=== PATIENT | female | born 1975 | race Hispanic/Latino ===

== ENCOUNTER 2016-06-11 07:50 | Day surgery (SDC) | payer MEDICAID ==
[2016-06-11] MEDS ORDERED: WATER FOR IRRIG STERILE IR ONE (08:47)
[2016-06-11] MEDS ORDERED: NACL 0.9% 1000 ML 1,000 ML IV SCH (09:00)
[2016-06-11] MEDS ORDERED: DIPRIVAN 10 MG/ML IV ONE ×2 (09:00)
[2016-06-11] MEDS ORDERED: XYLOCAINE MPF 2% ONE (11:04)
--- NOTE | 2016-06-11 11:04 | Anesthesia Consultation ---
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 Nichols spoke with consulting Neurologist. Patient is cleared for anesthesia
--- NOTE | 2016-06-11 11:04 | Anesthesia Day of Surgery ---
Anesthesia Day of Surgery - Day of Surgery Patient Examined: Yes Patient H&P Reviewed: Yes Patient is NPO: Yes
[2016-06-11 11:47] VITALS: BP 104/66
--- NOTE | 2016-06-11 12:39 | Operative Report ---
Operative Report Operative Report: Date: 06/11/2016 Operative Report: Date of procedure: 06/11/2016 Procedure: Esophagogastroduodenoscopy . Attending physician: Darci Ellis MD Upholstery Cutter: Darci Ellis MD Indication: Patient is a 40-year-old female who presented with a history of epigastric pain, indigestion/ gerd with dysphagia. Patient also with complaints of bloating and intestinal gas.. An upper endoscopy is done to assess patient regarding cause of her symptoms so that treatment may be directed based on the findings. Consent: Informed consent was obtained after advising the patient and family regarding nature of this procedure, its indications, potential benefits as well as possible complications including but not limited to bleeding perforation and adverse reaction to medication, infection as well as other cardiopulmonary complications. An informed written and verbal consent was then obtained after due opportunity was provided for questions and answers. Monitoring: Patient was monitored continuously with pulse oximetry and electrocardiographic recordings as well as blood pressure recordings. Vital signs remained stable throughout this procedure with no untoward events. Preoperative assessment: Patient was assessed immediately prior to this procedure for capacity to tolerate monitored anesthesia care and moderate sedation as well as general anesthesia. Patient's ASA classification is 2, Mallampati class is 2, Hyomental distance is 3. Instrument: Bundle Itn video endoscope Medications: Propofol given intravenously in divided doses. For details please refer to anesthesia records. Description of procedure: Patient was placed in the left lateral decubitus position after achieving sedation, endoscope was introduced into the esophagus marked was advanced beyond the esophagus into stomach and then to the second portion of the duodenum. It was withdrawn with careful inspection of all mucosal surfaces with the following findings. Findings: There is mild erosive esophagitis involving the distal esophagus. There was a non-luminally occluding ring, that forms somewhat on advancing the endoscope through the esophagus but did not appear permanent.. There was a 2 cm sliding hiatal hernia seen on entry into the stomach. There was substantial retained gastric contents seen. This contains mostly old food occupying most of the gastric body and antrum. There are however no gross mucosal abnormalities seen in the antrum. The duodenum was normal to second portion. Impression: Mild erosive esophagitis Hiatal hernia. Retained gastric contents. Plan: Obtain a gastric emptying study to rule out gastroparesis. Observe patient clinically otherwise.
--- NOTE | 2016-06-11 12:39 | Post Anesthesia Evaluation ---
- Post Anesthesia Evaluation Patient Participated: Yes Airway Patent: Yes Stable Respiratory Function: Yes Nausea/Vomiting: No Temp > 96.8F: Yes Pain Manageable: Yes Adequeate Hydration: Yes Anesthesia Complications: No Block Receding Appropriately: Not Applicable Patient on Ventilator: No
--- NOTE | 2016-06-11 12:39 | Discharge Summary ---
Short Stay Discharge Plan Activity: advance as tolerated Weight Bearing Status: Weight Bear as Tolerated Diet: regular Additional Instructions: Post Sedation D/C Instructions When you return home you may resume your regular diet unless otherwise directed. -Go directly home from the hospital and rest quietly. You may resume normal activities tomorrow. -Do NOT drive, return to work, operate any machinery or make any important personal or business decisions today. -Do NOT drink any alcohol or take nerve or sleeping drugs. They add to the effects of the medicine still present in your body. Follow up with Dr. Ellis for treatment plan. Follow up with: FATOU NGO DO [Primary Care Provider] - 7 Days
== END 2016-06-11 07:51 | disposition home or self-care (01) ==
LOC: GIO 07:50
PROVIDERS: ATTEND Internal Medicine Gastroenterology
DX: K21.0 Gastro-esophageal reflux disease with esophagitis (principal); K44.9 Diaphragmatic hernia without obstruction or gangrene; F17.210 Nicotine dependence, cigarettes, uncomplicated; F41.9 Anxiety disorder, unspecified; F32.9 Major depressive disorder, single episode, unspecified; Z90.710 Acquired absence of both cervix and uterus; Z98.890 Other specified postprocedural states; Z79.899 Other long term (current) drug therapy; Z83.79 Family history of other diseases of the digestive system
CPT/HCPCS: 43235; J2704; J7030

== ENCOUNTER 2019-02-11 19:46 | Inpatient (IN) | payer MEDICAID, MEDICARE ==
--- NOTE | 2019-02-11 19:58 | Emergency Department Report ---
Blank Doc - Documentation Documentation: 43-year-old female that presents with left foot pain and swelling s/p injury. This initial assessment/diagnostic orders/clinical plan/treatment(s) is/are subject to change based on patient's health status, clinical progression and re- assessment by fellow clinical providers in the ED. Further treatment and workup at subsequent clinical providers discretion. Patient/guardians urged not to elope from the ED as their condition may be serious if not clinically assessed and managed. Initial orders include: 1- Patient sent to [facility] for further evaluation and treatment 2- xrays
--- NOTE | 2019-02-11 20:43 | XRay Report ---
XR foot 3+V LT INDICATION / CLINICAL INFORMATION: Left foot pain and swelling. COMPARISON: None available. FINDINGS: There is focal cortical bone lysis in the distal tuft of the first digit distal phalanx concerning fo r osteomyelitis. There is adjacent soft tissue swelling of the big toe. There is no soft tissue gas o r radiopaque foreign body. Remaining bones appear normal. Signer Name: Carlos Israel MD Signed: 02/11/2019 8:39 PM Workstation Name: [id number]
[2019-02-12 01:15] LABS: Basophils # (Auto) 0.1 K/mm3 (0.0-0.1); Basophils % (Auto) 0.8 % (0.0-1.8); Eosinophils # (Auto) 0.2 K/mm3 (0.0-0.4); Eosinophils % (Auto) 2.2 % (0.0-4.3); Hematocrit 42.5 % (30.3-42.9); Hemoglobin 14.6 gm/dl (10.1-14.3); Lymphocytes # (Auto) 3.3 K/mm3 (1.2-5.4); Lymphocytes % (Auto) 45.8 % (13.4-35.0); Mean Corpuscular HGB Conc 35 % (30-34); Mean Corpuscular Volume 89 fl (79-97); Monocytes # (Auto) 0.6 K/mm3 (0.0-0.8); Monocytes % (Auto) 8.1 % (0.0-7.3); Platelet Count 251 K/mm3 (140-440); Red Blood Count 4.78 M/mm3 (3.65-5.03); Red Cell Distribution Width 13.7 % (13.2-15.2)
[2019-02-12] MEDS ORDERED: SODIUM CHLORIDE 0.9% 1000 ML 1,000 ML IV ONE (01:21)
[2019-02-12 01:29] LABS: Alanine Aminotransferase 17 units/L (7-56); Albumin 4.5 g/dL (3.9-5); BUN/Creatinine Ratio 8; Blood Urea Nitrogen 5 mg/dL (7-17); Calcium 9.5 mg/dL (8.4-10.2); Hemolysis Index 4
[2019-02-12] MEDS ORDERED: MORPHINE 4 MG/1 ML INJ IV ONE (02:09)
[2019-02-12] MEDS ORDERED: ONDANSETRON 4 MG/2 ML INJ IV ONE (02:09)
--- NOTE | 2019-02-12 02:14 | Emergency Department Report ---
ED General Adult HPI - General Chief complaint: Extremity Injury, Lower Stated complaint: LT FOOT PAIN W/SWELLING Time Seen by Provider: 02/11/19 19:56 Source: patient Mode of arrival: Ambulatory Limitations: No Limitations - History of Present Illness Initial comments: Patient presents to the emergency department with a chief complaint of swelling and pain to her left great toe times one week. Patient denies a history of diabetes mellitus or any trauma to that toe. - Related Data Home Medications Medication Instructions Recorded Confirmed Last Taken Amitriptyline 20 mg PO HS 06/11/16 06/11/16 06/09/16 Cyclobenzaprine 10 mg PO PRN 06/11/16 06/11/16 Unknown Gabapentin 300 mg PO HS 06/11/16 06/11/16 06/09/16 Meclizine 25 mg PO HS 06/11/16 06/11/16 06/10/16 Meloxicam 7.5 mg PO BID 06/11/16 06/11/16 06/10/16 Omeprazole 20 mg PO BID 06/11/16 06/11/16 06/10/16 Propranolol 40 mg PO BID 06/11/16 06/11/16 06/10/16 Sertraline 25 mg PO TID 06/11/16 06/11/16 06/10/16 Topiramate 100 mg PO DAILY 06/11/16 06/11/16 06/10/16 busPIRone 5 mg PO BID 06/11/16 06/11/16 06/10/16 Previous Rx's Medication Instructions Recorded Last Taken Type HYDROcodone/APAP 5-325 [[place] 1 each PO Q6HR PRN #10 tablet 08/06/13 Unknown Rx 5-325 mg TAB] Ibuprofen [Motrin] 800 mg PO Q8H PRN #20 tablet 08/06/13 Unknown Rx Phenazopyridine [Pyridium] 200 mg PO TID #6 tablet 08/06/13 Unknown Rx Sulfamethoxazole/Trimethoprim 1 each PO BID #28 tablet 08/06/13 Unknown Rx [Bactrim Ds] Ibuprofen [Motrin 600 MG tab] 600 mg PO Q8H PRN #14 tablet 12/29/15 Unknown Rx traMADoL [Ultram 50 MG tab] 50 mg PO Q6HR PRN #10 tablet 12/29/15 06/09/16 Rx Allergies Allergy/AdvReac Type Severity Reaction Status Date / Time acetaminophen [From Percocet] Allergy Itching Verified 12/29/15 05:27 oxycodone HCl [From Percocet] Allergy Itching Verified 12/29/15 05:27 ED Review of Systems ROS: Stated complaint: LT FOOT PAIN W/SWELLING Other details as noted in HPI Comment: All other systems reviewed and negative Constitutional: denies: chills, fever Eyes: denies: eye pain, eye discharge, vision change ENT: denies: ear pain, throat pain Respiratory: denies: cough, shortness of breath, wheezing Cardiovascular: denies: chest pain, palpitations Endocrine: no symptoms reported Gastrointestinal: denies: abdominal pain, nausea, diarrhea Genitourinary: denies: urgency, dysuria, discharge Musculoskeletal: other (left toe pain). 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 bladder sling - Social History Smoking Status: Never Smoker Substance Use Type: None - Medications Home Medications: Home Medications Medication Instructions Recorded Confirmed Last Taken Type HYDROcodone/APAP 5-325 [[place] 1 each PO Q6HR PRN #10 tablet 08/06/13 06/11/16 Unknown Rx 5-325 mg TAB] Ibuprofen [Motrin] 800 mg PO Q8H PRN #20 tablet 08/06/13 06/11/16 Unknown Rx Phenazopyridine [Pyridium] 200 mg PO TID #6 tablet 08/06/13 06/11/16 Unknown Rx Sulfamethoxazole/Trimethoprim 1 each PO BID #28 tablet 08/06/13 06/11/16 Unknown Rx [Bactrim Ds] Ibuprofen [Motrin 600 MG tab] 600 mg PO Q8H PRN #14 tablet 12/29/15 06/11/16 Unknown Rx traMADoL [Ultram 50 MG tab] 50 mg PO Q6HR PRN #10 tablet 12/29/15 06/11/16 06/09/16 Rx Amitriptyline 20 mg PO HS 06/11/16 06/11/16 06/09/16 History Cyclobenzaprine 10 mg PO PRN 06/11/16 06/11/16 Unknown History Gabapentin 300 mg PO HS 06/11/16 06/11/16 06/09/16 History Meclizine 25 mg PO HS 06/11/16 06/11/16 06/10/16 History Meloxicam 7.5 mg PO BID 06/11/16 06/11/16 06/10/16 History Omeprazole 20 mg PO BID 06/11/16 06/11/16 06/10/16 History Propranolol 40 mg PO BID 06/11/16 06/11/16 06/10/16 History Sertraline 25 mg PO TID 06/11/16 06/11/16 06/10/16 History Topiramate 100 mg PO DAILY 06/11/16 06/11/16 06/10/16 History busPIRone 5 mg PO BID 06/11/16 06/11/16 06/10/16 History ED Physical Exam - General Limitations: No Limitations General appearance: alert, in no apparent distress - Head Head exam: Present: atraumatic, normocephalic - Eye Eye exam: Present: normal appearance, PERRL, EOMI - ENT ENT exam: Present: mucous membranes moist - Neck Neck exam: Present: normal inspection - Respiratory Respiratory exam: Present: normal lung sounds bilaterally. Absent: respiratory distress - Cardiovascular Cardiovascular Exam: Present: regular rate, normal rhythm. Absent: systolic murmur, diastolic murmur, rubs, gallop - GI/Abdominal GI/Abdominal exam: Present: soft, normal bowel sounds. Absent: distended, tenderness - Extremities Exam Extremities exam: Present: other (the swelling of the left great toe with erythema and warmth to touch) - Back Exam Back exam: Present: normal inspection - Neurological Exam Neurological exam: Present: alert, oriented X3, CN II-XII intact. Absent: motor sensory deficit - Psychiatric Psychiatric exam: Present: normal affect, normal mood - Skin Skin exam: Present: warm, dry, intact, normal color. Absent: rash ED Course Vital Signs 02/11/19 19:52 Temperature 97.4 F L Pulse Rate 74 Respiratory 18 Rate Blood Pressure 114/82 O2 Sat by Pulse 99 Oximetry ED Medical Decision Making - Lab Data Result diagrams: 02/12/19 00:31 02/12/19 00:31 Lab Results 02/12/19 02/12/19 02/12/19 Range/Units 00:31 00:31 00:31 WBC 7.3 (4.5-11.0) K/mm3 RBC 4.78 (3.65-5.03) M/mm3 Hgb 14.6 H (10.1-14.3) gm/dl Hct 42.5 (30.3-42.9) % MCV 89 (79-97) fl MCH 31 (28-32) pg MCHC 35 H (30-34) % RDW 13.7 (13.2-15.2) % Plt Count 251 (140-440) K/mm3 Lymph % (Auto) 45.8 H (13.4-35.0) % [place] % (Auto) 8.1 H (0.0-7.3) % Eos % (Auto) 2.2 (0.0-4.3) % Baso % (Auto) 0.8 (0.0-1.8) % Lymph # 3.3 (1.2-5.4) K/mm3 [place] # 0.6 (0.0-0.8) K/mm3 Eos # 0.2 (0.0-0.4) K/mm3 Baso # 0.1 (0.0-0.1) K/mm3 Seg Neutrophils % 43.1 (40.0-70.0) % Seg Neutrophils # 3.1 (1.8-7.7) K/mm3 Sodium 138 (137-145) mmol/L Potassium 3.7 (3.6-5.0) mmol/L Chloride 102.4 (98-107) mmol/L Carbon Dioxide 28 (22-30) mmol/L Anion Gap 11 mmol/L BUN 5 L (7-17) mg/dL Creatinine 0.6 L (0.7-1.2) mg/dL Estimated GFR > 60 ml/min BUN/Creatinine Ratio 8 % Glucose 83 (65-100) mg/dL Lactic Acid 0.80 (0.7-2.0) mmol/L Calcium 9.5 (8.4-10.2) mg/dL Total Bilirubin 0.30 (0.1-1.2) mg/dL AST 18 (5-40) units/L ALT 17 (7-56) units/L Alkaline Phosphatase 74 (35-129) units/L Total Protein 7.3 (6.3-8.2) g/dL Albumin 4.5 (3.9-5) g/dL Albumin/Globulin Ratio 1.6 % - Radiology Data Radiology results: report reviewed - Medical Decision Making IV antibiotics initiated Discussed patient with Dr. Denise Critical care attestation.: If time is entered above; I have spent that time in minutes in the direct care of this critically ill patient, excluding procedure time. ED Disposition Clinical Impression: Osteomyelitis Disposition: DC-09 OP ADMIT IP TO THIS HOSP Is pt being admited?: Yes Does the pt Need Aspirin: No Condition: Fair Referrals: FATOU NGO MD [Primary Care Provider] - 3-5 Days
[2019-02-12] MEDS ORDERED: VANCOMYCIN 1,500 MG in SODIUM CHLORIDE 0.9% 500 ML 500 ML IV ONE (03:00)
[2019-02-12] MEDS ORDERED: MORPHINE 2 MG/1 ML INJ IV PRN (03:18)
[2019-02-12] MEDS ORDERED: diphenhydrAMINE 50 MG/ML VIAL IV PRN (03:19)
[2019-02-12] MEDS ORDERED: traMADol 50 MG TAB PO ONE (03:31)
--- NOTE | 2019-02-12 03:46 | History and Physical Report ---
<JEANNE HOLDER - Last Filed: 02/12/19 03:41> History of Present Illness Date of examination: 02/12/19 Date of admission: 02/12/2019 Chief complaint: pain and swelling of left great toe History of present illness: 43-year-old female who is an ongoing smoker with a shift GERD presents to [facility] ED with complaints of left foot swelling. She states that she has been experiencing swelling of the left foot for the past two weeks. According to pt, the swelling resolved and return approximately 4 days ago. Yesterday morning when she tried to put shoe on left foot, she was unable to do so. Her foot was so swollen that she was unable to put on her left shoe. She describes her pain and aching and rates it 7/10. It is aggravated with activity and touch. Pt denies injury or trauma to left foot. Past History Past Medical History: GERD, other (Arnold Chiari Malformation with headaches, rib fx and punctured lung) Past Surgical History: cholecystectomy, hysterectomy (partial), Other ( bladder sling) Social history: lives with family, smoking (current everyday smoker) Family history: no significant family history Medications and Allergies Allergies Allergy/AdvReac Type Severity Reaction Status Date / Time acetaminophen [From Percocet] Allergy Itching Verified 12/29/15 05:27 oxycodone HCl [From Percocet] Allergy Itching Verified 12/29/15 05:27 Home Medications Medication Instructions Recorded Confirmed Last Taken Type traMADoL [Ultram 50 MG tab] 50 mg PO Q6HR PRN #10 tablet 12/29/15 02/12/19 06/09/16 Rx Amitriptyline 20 mg PO HS 06/11/16 02/12/19 02/11/19 History Gabapentin 300 mg PO HS 06/11/16 02/12/19 02/11/19 History Meclizine 25 mg PO HS 06/11/16 02/12/19 02/11/19 History Omeprazole 20 mg PO BID 06/11/16 02/12/19 02/11/19 History Propranolol 40 mg PO BID 06/11/16 02/12/19 02/11/19 History Sertraline 25 mg PO TID 06/11/16 02/12/19 06/10/16 History busPIRone 5 mg PO BID 04/05/2502/12/19 02/11/19 History traZODone 50 mg PO QHS 02/12/19 02/12/19 02/10/19 History Active Meds: Active Medications Diphenhydramine HCl (Benadryl) 25 mg IV Q6H PRN PRN Reason: Itching Heparin Sodium (Porcine) (Heparin) 5,000 unit SUB-Q Q12HR WILL Vancomycin HCl 1,500 mg/ (Sodium Chloride) 530 mls @ 333.333 mls/hr IV ONCE ONE Stop: 02/12/19 04:35 Sodium Chloride (Nacl 0.9% 1000 Ml) 1,000 mls @ 100 mls/hr IV DIRECT WILL Stop: 02/12/19 12:00 Ampicillin Sodium/Sulbactam Sodium (Unasyn/Ns 1.5 Gm/50 Ml) 1.5 gm in 50 mls @ 100 mls/hr IV Q6HR WILL; Protocol Vancomycin HCl (Vancomycin/Ns 1 Gm/250 Ml) 1 gm in 250 mls @ 250 mls/hr IV Q8H WILL Ondansetron HCl (Zofran) 4 mg IV Q8H PRN PRN Reason: Nausea And Vomiting Sodium Chloride (Sodium Chloride Flush Syringe 10 Ml) 10 ml IV BID WILL Sodium Chloride (Sodium Chloride Flush Syringe 10 Ml) 10 ml IV PRN PRN PRN Reason: LINE FLUSH Review of Systems All systems: negative Musculoskeletal: other (left great toe swelling, pain and erythema) Exam - Physical Exam Narrative exam: Physical exam General appearance: Present: No acute distress, alert and oriented 3, well- developed, well-nourished, adult female - EENT Eyes: Present: PERRL, EOM intact ENT: hearing intact, normal dentition - Neck Neck: Present: supple, normal ROM - Respiratory Respiratory effort: Non-labored Respiratory: Clear throughout - Cardiovascular Heart rate: 74 (bpm) Rhythm: Sinus rhythm Heart Sounds: Present: S1 & S2. Absent: rub, click - Extremities Extremities: no ischemia, pulses intact, left great toe edema and erythema - Peripheral Assessment Peripheral Pulses: within normal limits - Abdominal General gastrointestinal: soft, non-tender, normal bowel sounds - Integumentary Integumentary: Present: warm, dry - Musculoskeletal Musculoskeletal: Able to move all extremities -Neurological Neurological: CN II-XII intact - Psychiatric Psychiatric: Cooperative - Constitutional Vitals: Temp Pulse Resp BP Pulse Ox 97.4 F L 74 18 114/82 99 02/11/19 19:52 02/11/19 19:52 02/11/19 19:52 02/11/19 19:52 02/11/19 19:52 Results - Labs CBC & Chem 7: 02/12/19 00:31 12 00:31 Labs: Laboratory Last Values WBC 7.3 K/mm3 (4.5-11.0) 02/12/19 00:31 RBC 4.78 M/mm3 (3.65-5.03) 02/12/19 00:31 Hgb 14.6 gm/dl (10.1-14.3) H 02/12/19 00:31 Hct 42.5 % (30.3-42.9) 02/12/19 00:31 MCV 89 fl (79-97) 02/12/19 00:31 MCH 31 pg (28-32) 02/12/19 00:31 MCHC 35 % (30-34) H 02/12/19 00:31 RDW 13.7 % (13.2-15.2) 02/12/19 00:31 Plt Count 251 K/mm3 (140-440) 02/12/19 00:31 Lymph % (Auto) 45.8 % (13.4-35.0) H 02/12/19 00:31 [place] % (Auto) 8.1 % (0.0-7.3) H 02/12/19 00:31 Eos % (Auto) 2.2 % (0.0-4.3) 02/12/19 00:31 Baso % (Auto) 0.8 % (0.0-1.8) 02/12/19 00:31 Lymph # 3.3 K/mm3 (1.2-5.4) 02/12/19 00:31 [place] # 0.6 K/mm3 (0.0-0.8) 02/12/19 00:31 Eos # 0.2 K/mm3 (0.0-0.4) 02/12/19 00:31 Baso # 0.1 K/mm3 (0.0-0.1) 02/12/19 00:31 Seg Neutrophils % 43.1 % (40.0-70.0) 02/12/19 00:31 Seg Neutrophils # 3.1 K/mm3 (1.8-7.7) 02/12/19 00:31 Sodium 138 mmol/L (137-145) 02/12/19 00:31 Potassium 3.7 mmol/L (3.6-5.0) 02/12/19 00:31 Chloride 102.4 mmol/L (98-107) 02/12/19 00: Carbon Dioxide 28 mmol/L (22-30) 02/12/19 00:31 Anion Gap 11 mmol/L 02/12/19 00:31 BUN 5 mg/dL (7-17) L 02/12/19 00:31 Creatinine 0.6 mg/dL (0.7-1.2) L 02/12/19 00:31 Estimated GFR > 60 ml/min 02/12/19 00: BUN/Creatinine Ratio 8 % 02/12/19 00: Glucose 83 mg/dL (65-100) 02/12/19 00: Lactic Acid 0.80 mmol/L (0.7-2.0) 02/12/19 00:31 Calcium 9.5 mg/dL (8.4-10.2) 02/12/19 00:31 Total Bilirubin 0.30 mg/dL (0.1-1.2) 02/12/19 00:31 AST 18 units/L (5-40) 02/12/19 00:31 ALT 17 units/L (7-56) 02/12/19 00: Alkaline Phosphatase 74 units/L (35-129) 02/12/19 00:31 Total Protein 7.3 g/dL (6.3-8.2) 02/12/19 00:31 Albumin 4.5 g/dL (3.9-5) 02/12/19 00:31 Albumin/Globulin Ratio 1.6 % 02/12/19 00:31 - Imaging and Cardiology Imaging and Cardiology: Left Foot XR: FINDINGS: There is focal cortical bone lysis in the distal tuft of the first digit distal phalanx concerning for osteomyelitis. There is adjacent soft tissue swelling of the big toe. There is no soft tissue gas or radiopaque foreign body. Remaining bones appear normal. Assessment and Plan Assessment and plan: 43-year-old female who is an ongoing smoker with a shift GERD presents to [facility] ED with complaints of left foot swelling for the past two weeks, which resolved and returned 4 days ago. Osteomyelitis (left foot) -Left Foot XR shows focal cortical bone lysis in the distal tuft of the first digit distal phalanx concerning for osteomyelitis. There is adjacent soft tissue swelling of the big toe. -P/t c/o left foot pain -Lef foot is warm to touch, with edema and erythema -Cultures pending -On IV vancomycin and Unasyn -ID consulted Tobacco abuse -Current every day smoker -Counseled for cessation -Nicotine patch when necessary DVT PPX -On Heparin Advance Directives: No VTE prophylaxis?: Chemical Plan of care discussed with patient/family: Yes <LAVELLE DURHAM - Last Filed: 02/13/19 23:44> History of Present Illness Date of admission: 02/12/19 03:42 Medications and Allergies Active Meds: Active Medications Diphenhydramine HCl (Benadryl) 25 mg IV Q6H PRN PRN Reason: Itching Heparin Sodium (Porcine) (Heparin) 5,000 unit SUB-Q Q12HR WILL Sodium Chloride (Nacl 0.9% 1000 Ml) 1,000 mls @ 100 mls/hr IV DIRECT WILL Stop: 02/12/19 12:00 Last Admin: 02/12/19 04:16 Dose: 100 mls/hr Documented by: Ampicillin Sodium/Sulbactam Sodium (Unasyn/Ns 1.5 Gm/50 Ml) 1.5 gm in 50 mls @ 100 mls/hr IV Q6HR WILL; Protocol Vancomycin HCl (Vancomycin/Ns 1 Gm/250 Ml) 1 gm in 250 mls @ 250 mls/hr IV Q8H WILL Nicotine (Habitrol) 14 mg TD QDAY WILL Ondansetron HCl (Zofran) 4 mg IV Q8H PRN PRN Reason: Nausea And Vomiting Sodium Chloride (Sodium Chloride Flush Syringe 10 Ml) 10 ml IV BID WILL Sodium Chloride (Sodium Chloride Flush Syringe 10 Ml) 10 ml IV PRN PRN PRN Reason: LINE FLUSH Exam - Constitutional Vitals: Temp Pulse Resp BP Pulse Ox 97.7 F 80 16 106/75 99 02/12/19 05:14 02/12/19 05:14 02/12/19 05:14 02/12/19 05:14 12/05/19 05:14 Results - Labs CBC & Chem 7: 02/13/19 08:19 02/13/19 08:19 Labs: Laboratory Last Values WBC 7.3 K/mm3 (4.5-11.0) 02/12/19 00:31 RBC 4.78 M/mm3 (3.65-5.03) 02/12/19 00:31 Hgb 14.6 gm/dl (10.1-14.3) H 02/12/19 00:31 Hct 42.5 % (30.3-42.9) 02/12/19 00:31 MCV 89 fl (79-97) 02/12/19 00:31 MCH 31 pg (28-32) 02/12/19 00:31 MCHC 35 % (30-34) H 02/12/19 00:31 RDW 13.7 % (13.2-15.2) 02/12/19 00:31 Plt Count 251 K/mm3 (140-440) 02/12/19 00:31 Lymph % (Auto) 45.8 % (13.4-35.0) H 02/12/19 00:31 [place] % (Auto) 8.1 % (0.0-7.3) H 02/12/19 00:31 Eos % (Auto) 2.2 % (0.0-4.3) 02/12/19 00:31 Baso % (Auto) 0.8 % (0.0-1.8) 02/12/19 00:31 Lymph # 3.3 K/mm3 (1.2-5.4) 02/12/19 00:31 [place] # 0.6 K/mm3 (0.0-0.8) 02/12/19 00:31 Eos # 0.2 K/mm3 (0.0-0.4) 02/12/19 00:31 Baso # 0.1 K/mm3 (0.0-0.1) 02/12/19 00:31 Seg Neutrophils % 43.1 % (40.0-70.0) 02/12/19 00:31 Seg Neutrophils # 3.1 K/mm3 (1.8-7.7) 02/12/19 00:31 Sodium 138 mmol/L (137-145) 02/12/19 00:31 Potassium 3.7 mmol/L (3.6-5.0) 02/12/19 00:31 Chloride 102.4 mmol/L (98-107) 02/12/19 00:31 Carbon Dioxide 28 mmol/L (22-30) 02/12/19 00:31 Anion Gap 11 mmol/L 02/12/19 00:31 BUN 5 mg/dL (7-17) L 02/12/19 00:31 Creatinine 0.6 mg/dL (0.7-1.2) L 02/12/19 00:31 Estimated GFR > 60 ml/min 02/12/19 00:31 BUN/Creatinine Ratio 8 % 02/12/19 00:31 Glucose 83 mg/dL (65-100) 02/12/19 00:31 Lactic Acid 0.80 mmol/L (0.7-2.0) 02/12/19 00:31 Calcium 9.5 mg/dL (8.4-10.2) 02/12/19 00:31 Total Bilirubin 0.30 mg/dL (0.1-1.2) 02/12/19 00:31 AST 18 units/L (5-40) 02/12/19 00:31 ALT 17 units/L (7-56) 02/12/19 00:31 Alkaline Phosphatase 74 units/L (35-129) 02/12/19 00:31 Total Protein 7.3 g/dL (6.3-8.2) 02/12/19 00:31 Albumin 4.5 g/dL (3.9-5) 02/12/19 00:31 Albumin/Globulin Ratio 1.6 % 02/12/19 00:31 Assessment and Plan Assessment and plan: patiernt seen and examined, d/w MEDIA TECHNICIAN. 43 year old woman comes in with pain, swelling of her left great toe x 2weeks which has worsened over the last 4 days. X-ray shows osteomyelitis, agree with plan as discussed above
[2019-02-12] MEDS ORDERED: traMADol 50 MG TAB ONE (03:50)
[2019-02-12] MEDS ORDERED: VANCOMYCIN PHARMACY TO DOSE IV SCH (04:00)
[2019-02-12] MEDS ORDERED: SODIUM CHLORIDE 0.9% 1000 ML 1,000 ML ONE (04:14)
[2019-02-12] MEDS: SODIUM CHLORIDE 0.9% 1000 ML 1,000 ML IV SCH ×2 (04:16→11:10)
[2019-02-12 07:02] LABS: Amphetamine Screen,Urine PRESUMPTIVE NEGATIVE; Benzodiazepines Screen,Urine PRESUMPTIVE NEGATIVE; Cannabinoid Screen,Urine PRESUMPTIVE NEGATIVE; Cocaine Screen,Urine PRESUMPTIVE NEGATIVE; Methadone Screen,Urine PRESUMPTIVE NEGATIVE; Opiate Screen,Urine PRESUMPTIVE NEGATIVE
[2019-02-12] MEDS: AMPICILLIN/SULBACTA 1.5GM/50ML 1.5 GM/50 ML BAG IV SCH ×4 (07:35→23:33)
--- NOTE | 2019-02-12 09:19 | Progress Note ---
Assessment and Plan Assessment and plan: 43-year-old female patient with significant past medical history of GERD ongoing tobacco use, was admitted through the emergency room left foot first toe distal digit osteomyelitis , patient is started on antibiotics , ID consulted --Osteomyelitis (left foot great toe, tip of the distal phalanx) Elevate the limb, Pain management Empiric IV antibiotics, Follow cultures ID consult, Surgery/podiatry consult if needed --Ongoing tobacco abuse Smoking cessation advised Nicotine patch as needed --DVT prophylaxis; Heparin Monitor clinically and adjust the management as needed Plan of care reviewed with the patient and her nurse Advanced care 32 minutes History Interval history: Patient seen and examined medical records reviewed Admitted with left first toe digit osteomyelitis On IV antibiotics Patient complains of some pain Alert awake oriented x3 Vital signs noted Hospitalist Physical - Constitutional Vitals: Temp Pulse Resp BP Pulse Ox 97.7 F 80 16 106/75 99 02/12/19 05:14 02/12/19 05:14 02/12/19 05:14 02/12/19 05:14 02/12/19 05:14 General appearance: Present: no acute distress, well-nourished, obese - EENT Eyes: Present: PERRL, EOM intact - Neck Neck: Present: supple, normal ROM - Respiratory Respiratory effort: normal Respiratory: bilateral: diminished, negative: rales, rhonchi, wheezing - Cardiovascular Rhythm: regular Heart Sounds: Present: S1 & S2 - Extremities Extremities: no ischemia, No edema, abnormal (Left great toe swelling erythema tenderness) - Abdominal General gastrointestinal: soft, non-tender, non-distended, normal bowel sounds - Integumentary Integumentary: Present: clear, warm - Psychiatric Psychiatric: appropriate mood/affect, cooperative - Neurologic Neurologic: CNII-XII intact, moves all extremities Results - Labs CBC & Chem 7: 02/12/19 00:31 02/12/19 00:31 Labs: Laboratory Last Values WBC 7.3 K/mm3 (4.5-11.0) 02/12/19 00:31 RBC 4.78 M/mm3 (3.65-5.03) 02/12/19 00:31 Hgb 14.6 gm/dl (10.1-14.3) H 02/12/19 00:31 Hct 42.5 % (30.3-42.9) 02/12/19 00:31 MCV 89 fl (79-97) 02/12/19 00:31 MCH 31 pg (28-32) 02/12/19 00: MCHC 35 % (30-34) H 02/12/19 00:31 RDW 13.7 % (13.2-15.2) 02/12/19 00:31 Plt Count 251 K/mm3 (140-440) 02/12/19 00: Lymph % (Auto) 45.8 % (13.4-35.0) H 02/12/19 00:31 Rains % (Auto) 8.1 % (0.0-7.3) H 02/12/19 00:31 Eos % (Auto) 2.2 % (0.0-4.3) 02/12/19 00: Baso % (Auto) 0.8 % (0.0-1.8) 02/12/19 00: Lymph # 3.3 K/mm3 (1.2-5.4) 02/12/19 00: Rains # 0.6 K/mm3 (0.0-0.8) 02/12/19 00:31 Eos # 0.2 K/mm3 (0.0-0.4) 02/12/19 00:31 Baso # 0.1 K/mm3 (0.0-0.1) 02/12/19 00: Seg Neutrophils % 43.1 % (40.0-70.0) 02/12/19 00: Seg Neutrophils # 3.1 K/mm3 (1.8-7.7) 02/12/19 00:31 Sodium 138 mmol/L (137-145) 02/12/19 00:31 Potassium 3.7 mmol/L (3.6-5.0) 02/12/19 00: Chloride 102.4 mmol/L (98-107) 02/12/19 00: Carbon Dioxide 28 mmol/L (22-30) 02/12/19 00:31 Anion Gap 11 mmol/L 02/12/19 00:31 BUN 5 mg/dL (7-17) L 02/12/19 00: Creatinine 0.6 mg/dL (0.7-1.2) L 02/12/19 00:31 Estimated GFR > 60 ml/min 02/12/19 00:31 BUN/Creatinine Ratio 8 % 02/12/19 00:31 Glucose 83 mg/dL (65-100) 02/12/19 00:31 Lactic Acid 0.80 mmol/L (0.7-2.0) 02/12/19 00:31 Calcium 9.5 mg/dL (8.4-10.2) 02/12/19 00:31 Total Bilirubin 0.30 mg/dL (0.1-1.2) 02/12/19 00:31 AST 18 units/L (5-40) 02/12/19 00:31 ALT 17 units/L (7-56) 02/12/19 00:31 Alkaline Phosphatase 74 units/L (35-129) 02/12/19 00:31 Total Protein 7.3 g/dL (6.3-8.2) 02/12/19 00:31 Albumin 4.5 g/dL (3.9-5) 02/12/19 00:31 Albumin/Globulin Ratio 1.6 % 02/12/19 00:31 Urine Opiates Screen Presumptive negative 02/12/19 Unknown Urine Methadone Screen Presumptive negative 02/12/19 Unknown Ur Barbiturates Screen Presumptive negative 02/12/19 Unknown Ur Phencyclidine Scrn Presumptive negative 02/12/19 Unknown Ur Amphetamines Screen Presumptive negative 02/12/19 Unknown U Benzodiazepines Scrn Presumptive negative 02/12/19 Unknown Urine Cocaine Screen Presumptive negative 02/12/19 Unknown U Marijuana (THC) Screen Presumptive negative 02/12/19 Unknown Drugs of Abuse Note Disclamer 02/12/19 Unknown Active Medications - Current Medications Current Medications: Generic Name Dose Route Start Last Admin Trade Name Freq PRN Reason Stop Dose Admin Diphenhydramine HCl 25 mg 02/12/19 03:19 Benadryl IV Q6H PRN Itching Heparin Sodium (Porcine) 5,000 unit 02/12/19 10:00 Heparin SUB-Q Q12HR WILL Sodium Chloride 1,000 mls @ 100 mls/hr 02/12/19 03:30 02/12/19 04:16 Nacl 0.9% 1000 Ml IV 02/12/19 12:00 100 mls/hr DIRECT WILL Administration Ampicillin Sodium/Sulbactam Sodium 1.5 gm in 50 mls @ 100 mls/hr 02/12/19 06:00 12/05/19 07:35 Unasyn/Ns 1.5 Gm/50 Ml IV 100 mls/hr Q6HR WILL Administration Protocol Vancomycin HCl 1 gm in 250 mls @ 250 mls/hr 02/12/19 10:00 Vancomycin/Ns 1 Gm/250 Ml IV Q8H WILL Nicotine 14 mg 02/12/19 10:00 Habitrol TD QDAY [facility] Ondansetron HCl 4 mg 02/12/19 03:16 Zofran IV Q8H PRN Nausea And Vomiting Sodium Chloride 10 ml 02/12/19 10:00 Sodium Chloride Flush Syringe 10 Ml IV BID WILL Sodium Chloride 10 ml 02/12/19 03:16 Sodium Chloride Flush Syringe 10 Ml IV PRN PRN LINE FLUSH Tramadol HCl 50 mg 02/12/19 05:52 Ultram PO Q6H PRN Pain, Moderate (4-6)
[2019-02-12] MEDS: traMADol 50 MG TAB PO PRN ×3 (11:08→23:05)
[2019-02-12] MEDS: VANCOMYCIN/NS 1 GM/250 ML 1 GM/250 ML BAG IV SCH ×2 (11:10→20:23)
[2019-02-12] MEDS: NICOTINE 14 MG/24 HR PATCH TD SCH (11:15)
[2019-02-12] MEDS: HEPARIN 5,000 UNIT/1 ML VIAL SUB-Q SCH ×2 (11:16→23:06)
--- NOTE | 2019-02-12 15:28 | Consultation ---
History of Present Illness - Reason for Consult Consult date: 02/12/19 Osteomyelitis Requesting physician: AIYANA AVINA - History of Present Illness The patient is a 43-year-old female with tobacco abuse, gastroesophageal reflux disease came to the emergency room last night with complaints of left great toe swelling and pain that had been going on for the last 2 weeks, initially got slightly better, then got worse and hence came to the hospital. Was started empiric abx, feels slightly worse today. Reports constipation. Smokes 1 pack over 2-3 days, denies any alcohol or other drugs. No previous similar episode, no h/o diabetes. No h/o gout. Unemployed, denies any trauma or insect bite. Review of Systems: General: no fevers,chills or rigors HEENT: no new visual disturbance Respiratory: No cough, sputum, hemoptysis or shortness of breath Cardiovascular: No chest pain, syncope Gastrointestinal: No nausea, vomiting or diarrhea. Reports constipation Genitourinary: No dysuria or hematuria Musculoskeletal: No new or worsening neck pain or back pain Neurologic: No headaches, seizures Hematologic: No easy bruising or bleeding Endocrine: No night sweats or acute weight loss Skin: negative for rash, jaundice Psychiatric: No suicidal or homicidal ideation Past History Past Medical History: GERD, other (Arnold Chiari Malformation with headaches, rib fx and punctured lung) Past Surgical History: cholecystectomy, hysterectomy (partial), Other ( bladder sling) Social history: lives with family, smoking (current everyday smoker) Family history: no significant family history Medications and Allergies Allergies Allergy/AdvReac Type Severity Reaction Status Date / Time acetaminophen [From Percocet] Allergy Itching Verified 12/29/15 05:27 oxycodone HCl [From Percocet] Allergy Itching Verified 12/29/15 05:27 Home Medications Medication Instructions Recorded Confirmed Last Taken Type traMADoL [Ultram 50 MG tab] 50 mg PO Q6HR PRN #10 tablet 12/29/15 02/12/19 06/09/16 Rx Amitriptyline 20 mg PO HS 06/11/16 02/12/19 02/11/19 History Gabapentin 300 mg PO HS 06/11/16 02/12/19 02/11/19 History Meclizine 25 mg PO HS 06/11/16 02/12/19 02/11/19 History Omeprazole 20 mg PO BID 06/11/16 02/12/19 02/11/19 History Propranolol 40 mg PO BID 06/11/16 02/12/19 02/11/19 History Sertraline 25 mg PO TID 06/11/16 02/12/19 06/10/16 History busPIRone 5 mg PO BID 06/11/16 02/12/19 02/11/19 History traZODone 50 mg PO QHS 02/12/19 02/12/19 02/10/19 History Active Meds: Active Medications Diphenhydramine HCl (Benadryl) 25 mg IV Q6H PRN PRN Reason: Itching Heparin Sodium (Porcine) (Heparin) 5,000 unit SUB-Q Q12HR [facility] Last Admin: 02/12/19 11:16 Dose: 5,000 unit Documented by: Ampicillin Sodium/Sulbactam Sodium (Unasyn/Ns 1.5 Gm/50 Ml) 1.5 gm in 50 mls @ 100 mls/hr IV Q6HR [facility]; Protocol Last Admin: 02/12/19 07:35 Dose: 100 mls/hr Documented by: Vancomycin HCl (Vancomycin/Ns 1 Gm/250 Ml) 1 gm in 250 mls @ 250 mls/hr IV Q8H [facility] Last Admin: 02/12/19 11:10 Dose: 250 mls/hr Documented by: Nicotine (Habitrol) 14 mg TD QDAY [facility] Last Admin: 02/12/19 11:15 Dose: 14 mg Documented by: Ondansetron HCl (Zofran) 4 mg IV Q8H PRN PRN Reason: Nausea And Vomiting Sodium Chloride (Sodium Chloride Flush Syringe 10 Ml) 10 ml IV BID [facility] Last Admin: 02/12/19 11:16 Dose: 10 ml Documented by: Sodium Chloride (Sodium Chloride Flush Syringe 10 Ml) 10 ml IV PRN PRN PRN Reason: LINE FLUSH Tramadol HCl (Ultram) 50 mg PO Q6H PRN PRN Reason: Pain, Moderate (4-6) Last Admin: 02/12/19 11:08 Dose: 50 mg Documented by: Physical Examination - Physical Exam Narrative exam: Physical Exam: Constitutional: Alert, cooperative. No acute distress Head, Ears, Nose: Normocephalic, atraumatic. External ears, nose normal Eyes: Conjunctivae/corneas clear. No icterus. No ptosis. Neck: Supple, no meningeal signs Oral: no thrush Cardiovascular: S1, S2 normal. Respiratory: Good air entry, clear to auscultation bilaterally GI: Soft, non-tender; bowel sounds normal. No peritoneal signs Musculoskeletal: No pedal edema, no cyanosis. Left great toe tip with swelling, redness and tenderness, no open wound. Left dorsalis pedis is palpable Skin: No rash or abscess Hem/Lymphatic: No palpable cervical or supraclavicular nodes. No lymphangitis Psych: Mood ok. Affect normal Neurological: Awake, alert, oriented. No gross abnormality - Constitutional Vitals: Vital Signs Temp Pulse Resp BP Pulse Ox 98.1 F 75 20 102/66 97 02/12/19 12:26 02/12/19 12:26 02/12/19 12:26 02/12/19 12:26 02/12/19 12:26 Temperature -Last 24 Hours Temperature 98.1 F Temperature 97.7 F Temperature 97.4 F Results - Labs CBC & Chem 7: 02/12/19 00:31 02/12/19 00:31 Labs: Abnormal lab results 02/12/19 02/12/19 Range/Units 00:31 00:31 Hgb 14.6 H (10.1-14.3) gm/dl MCHC 35 H (30-34) % Lymph % (Auto) 45.8 H (13.4-35.0) % Frio % (Auto) 8.1 H (0.0-7.3) % BUN 5 L (7-17) mg/dL Creatinine 0.6 L (0.7-1.2) mg/dL Assessment and Plan Cultures: 02/12/2019 blood culture: In progress A/P: 43-year-old female with tobacco abuse, gastroesophageal reflux disease admitted with: 1) Left great toe cellulitis: ?underlying osteomyelitis of the tip of the distal phalanx, although no open wound, no h/o diabetes. Unusual presentation for osteomyelitis. Patient is a smoker, ?vascular insufficiency. No h/o gout. Rule out bacteremic seeding. 2) Tobacco abuse Recs: continue empiric IV Vancomycin and Unasyn ordered MRI left foot with and without contrast to confirm diagnosis and rule out any abscess ordered vascular studies ordered ESR, CRP and uric acid Mariam Bird MD, FACP [facility] ([facility] C: [phone] O: [phone] F: [phone]
[2019-02-12 16:22] LABS: C-Reactive Protein 0.2 mg/dL (0.00-1.30); Uric Acid 2.9 mg/dL (3.5-7.6)
--- NOTE | 2019-02-12 17:09 | Vascular Lab Report ---
DUPLEX DOPPLER LOWER EXTREMITY ARTERIAL, BILATERAL INDICATION / CLINICAL INFORMATION: left great toe osteomyelitis. TECHNIQUE: Arterial duplex examination of both lower extremities performed using B-mode, color flow and spectral Doppler assessment. FINDINGS: RIGHT: Common Femoral Artery: PSV 93 cm/sec. Triphasic waveform. Proximal SFA: PSV 90 cm/sec. Triphasic waveform. Mid SFA: PSV 92 cm/sec. Triphasic waveform. Distal SFA: PSV 85 cm/sec. Triphasic waveform. Popliteal artery: PSV 56 cm/sec. Triphasic waveform. Posterior tibial artery: PSV 27 cm/sec. Triphasic waveform. Dorsalis Pedis Artery: PSV 39 cm/sec. Triphasic waveform. LEFT: Common Femoral Artery: PSV 113 cm/sec. Triphasic waveform. Proximal SFA: PSV 95 cm/sec. Triphasic waveform. Mid SFA: PSV 104 cm/sec. Triphasic waveform. Distal SFA: PSV 88 cm/sec. Triphasic waveform. Popliteal artery: PSV 61 cm/sec. Triphasic waveform. Posterior tibial artery: PSV 45 cm/sec. Triphasic waveform. Dorsalis Pedis Artery: PSV 53 cm/sec. Triphasic waveform. Right RODRIGUEZ: 1.04. Left RODRIGUEZ: 1.09. IMPRESSION: 1. No significant lower extremity peripheral artery disease. Ankle-Brachial Index (RODRIGUEZ): - Calcified arteries > 1.4 - Normal = 0.9-1.4 - Mild PAD = 0.7-0.89 - Moderate PAD = 0.51-0.69 - Severe PAD < 0.5 Doppler Waveform: - Triphasic is normal. - Biphasic is abnormal if clear transition from triphasic signal along vascular tree. - Monophasic is abnormal. Signer Name: Yassine Keane MD Signed: 02/12/2019 5:05 PM Workstation Name: [id number]
--- NOTE | 2019-02-12 18:39 | Magnetic Resonance Report ---
MR LE joint LT wo/w con INDICATION / CLINICAL INFORMATION: left great toe osteomyelitis. TECHNIQUE: Multiplanar, multisequence MR images were obtained. COMPARISON: Radiographs one day prior FINDINGS: There is cortical loss at the distal phalanx of the great toe. Associated abnormal low T1/high T2 sig nal and enhancement is seen within the distal phalanx. This spares the subchondral bone at the IP art iculation. There is surrounding diffuse soft tissue edema and enhancement. No abscess is seen. There appears to be soft tissue defect along the dorsal aspect of the great toe distally (sagittal T1 image 11/06). Bone marrow signal is unremarkable throughout the remainder of the included foot. No acute muscle or tendon injury is seen. IMPRESSION: 1. Distal great toe cellulitis with associated osteomyelitis involving the distal phalanx. No abscess is seen. Signer Name: Albert Israel MD Signed: 02/12/2019 6:35 PM Workstation Name: [id number]
[2019-02-12] MEDS ORDERED: NON-FORMULARY EACH (Trazodone 50 MG) PO SCH (22:00)
[2019-02-12] MEDS ORDERED: NON-FORMULARY EACH (Omeprazole 20 MG) PO SCH (22:00)
[2019-02-12] MEDS: PANTOPRAZOLE 20 MG TAB PO SCH (23:05)
[2019-02-12] MEDS: traZODone 50 MG TAB PO SCH (23:06)
[2019-02-13] MEDS: ONDANSETRON 4 MG/2 ML INJ IV PRN ×2 (01:17→22:13)
[2019-02-13] MEDS: VANCOMYCIN/NS 1 GM/250 ML 1 GM/250 ML BAG IV SCH ×3 (02:23→19:31)
[2019-02-13] MEDS: AMPICILLIN/SULBACTA 1.5GM/50ML 1.5 GM/50 ML BAG IV SCH ×3 (06:43→18:00)
--- NOTE | 2019-02-13 07:43 | Progress Note ---
Assessment and Plan Assessment and plan: 43-year-old female patient with significant past medical history of GERD ongoing tobacco use, was admitted through the emergency room left foot first toe distal digit osteomyelitis , on antibiotics , ID evaluation noted and appreciated --Osteomyelitis (left foot great toe tip of the distal phalanx) Empiric IV antibiotics Unasyn and vancomycin, Elevate the limb ,follow cultures ID evaluation noted and appreciated Lower extremity arterial Doppler, no acute abnormality MRI foot, osteomyelitis no abscess --Ongoing tobacco abuse Smoking cessation,Nicotine patch as needed --DVT prophylaxis; Heparin Monitor clinically and adjust the management as needed Plan of care reviewed with the patient and her nurse History Interval history: Patient seen and examined medical records reviewed Patient complains of excruciating pain in the foot Admitted with osteomyelitis on IV antibiotics Vital signs noted Hospitalist Physical - Constitutional Vitals: Temp Pulse Resp BP Pulse Ox 97.9 F 83 20 121/74 98 02/13/19 05:45 02/13/19 05:45 02/13/19 05:45 02/13/19 05:45 02/13/19 05:45 General appearance: Present: no acute distress, well-nourished, obese - EENT Eyes: Present: PERRL, EOM intact - Neck Neck: Present: supple, normal ROM - Respiratory Respiratory effort: normal Respiratory: negative: rales, rhonchi, wheezing - Cardiovascular Rhythm: regular Heart Sounds: Present: S1 & S2 - Extremities Extremities: no ischemia, No edema, abnormal (Swelling left great toe) - Abdominal General gastrointestinal: soft, non-tender, non-distended, normal bowel sounds - Integumentary Integumentary: Present: clear, warm - Psychiatric Psychiatric: appropriate mood/affect, cooperative - Neurologic Neurologic: moves all extremities Results - Labs CBC & Chem 7: 02/13/19 08:19 02/13/19 08:19 Labs: Laboratory Last Values WBC 7.3 K/mm3 (4.5-11.0) 02/12/19 00:31 RBC 4.78 M/mm3 (3.65-5.03) 02/12/19 00:31 Hgb 14.6 gm/dl (10.1-14.3) H 02/12/19 00:31 Hct 42.5 % (30.3-42.9) 02/12/19 00:31 MCV 89 fl (79-97) 02/12/19 00:31 MCH 31 pg (28-32) 02/12/19 00:31 MCHC 35 % (30-34) H 02/12/19 00:31 RDW 13.7 % (13.2-15.2) 02/12/19 00:31 Plt Count 251 K/mm3 (140-440) 02/12/19 00: Lymph % (Auto) 45.8 % (13.4-35.0) H 02/12/19 00:31 Bradford % (Auto) 8.1 % (0.0-7.3) H 02/12/19 00:31 Eos % (Auto) 2.2 % (0.0-4.3) 02/12/19 00: Baso % (Auto) 0.8 % (0.0-1.8) 02/12/19 00: Lymph # 3.3 K/mm3 (1.2-5.4) 02/12/19 00: Bradford # 0.6 K/mm3 (0.0-0.8) 02/12/19 00: Eos # 0.2 K/mm3 (0.0-0.4) 02/12/19 00:31 Baso # 0.1 K/mm3 (0.0-0.1) 02/12/19 00: Seg Neutrophils % 43.1 % (40.0-70.0) 02/12/19 00: Seg Neutrophils # 3.1 K/mm3 (1.8-7.7) 02/12/19 00: ESR 11 mm/Hr (0-20) 02/12/19 15:40 Sodium 138 mmol/L (137-145) 02/12/19 00:31 Potassium 3.7 mmol/L (3.6-5.0) 02/12/19 00:31 Chloride 102.4 mmol/L (98-107) 02/12/19 00:31 Carbon Dioxide 28 mmol/L (22-30) 02/12/19 00: Anion Gap 11 mmol/L 02/12/19 00:31 BUN 5 mg/dL (7-17) L 02/12/19 00: Creatinine 0.6 mg/dL (0.7-1.2) L 02/12/19 00:31 Estimated GFR > 60 ml/min 02/12/19 00:31 BUN/Creatinine Ratio 8 % 02/12/19 00:31 Glucose 83 mg/dL (65-100) 02/12/19 00:31 Lactic Acid 0.80 mmol/L (0.7-2.0) 02/12/19 00:31 Uric Acid 2.9 mg/dL (3.5-7.6) L 02/12/19 15:40 Calcium 9.5 mg/dL (8.4-10.2) 02/12/19 00:31 Total Bilirubin 0.30 mg/dL (0.1-1.2) 02/12/19 00:31 AST 18 units/L (5-40) 02/12/19 00:31 ALT 17 units/L (7-56) 02/12/19 00:31 Alkaline Phosphatase 74 units/L (35-129) 02/12/19 00:31 C-Reactive Protein 0.20 mg/dL (0.00-1.30) 02/12/19 15:40 Total Protein 7.3 g/dL (6.3-8.2) 02/12/19 00:31 Albumin 4.5 g/dL (3.9-5) 02/12/19 00:31 Albumin/Globulin Ratio 1.6 % 02/12/19 00:31 Urine Opiates Screen Presumptive negative 02/12/19 Unknown Urine Methadone Screen Presumptive negative 02/12/19 Unknown Ur Barbiturates Screen Presumptive negative 02/12/19 Unknown Ur Phencyclidine Scrn Presumptive negative 02/12/19 Unknown Ur Amphetamines Screen Presumptive negative 02/12/19 Unknown U Benzodiazepines Scrn Presumptive negative 02/12/19 Unknown Urine Cocaine Screen Presumptive negative 02/12/19 Unknown U Marijuana (THC) Screen Presumptive negative 02/12/19 Unknown Drugs of Abuse Note Disclamer 02/12/19 Unknown Active Medications - Current Medications Current Medications: Generic Name Dose Route Start Last Admin Trade Name Freq PRN Reason Stop Dose Admin Diphenhydramine HCl 25 mg 02/12/19 03:19 Benadryl IV Q6H PRN Itching Heparin Sodium (Porcine) 5,000 unit 02/12/19 10:00 02/12/19 23:06 Heparin SUB-Q 5,000 unit Q12HR WILL Administration Ampicillin Sodium/Sulbactam Sodium 1.5 gm in 50 mls @ 100 mls/hr 02/12/19 06:00 02/13/19 06:43 Unasyn/Ns 1.5 Gm/50 Ml IV 100 mls/hr Q6HR WILL Administration Protocol Vancomycin HCl 1 gm in 250 mls @ 250 mls/hr 02/12/19 10:00 02/13/19 02:23 Vancomycin/Ns 1 Gm/250 Ml IV 250 mls/hr Q8H WILL Administration Nicotine 14 mg 02/12/19 10:00 02/12/19 11:15 Habitrol TD 14 mg QDAY WILL Administration Ondansetron HCl 4 mg 02/12/19 03:16 02/13/19 01:17 Zofran IV 4 mg Q8H PRN Administration Nausea And Vomiting Pantoprazole Sodium 20 mg 02/12/19 22:00 02/12/19 23:05 Protonix PO 20 mg BID WILL Administration Sodium Chloride 10 ml 02/12/19 10:00 02/12/19 23:14 Sodium Chloride Flush Syringe 10 Ml IV 10 ml BID WILL Administration Sodium Chloride 10 ml 02/12/19 03:16 Sodium Chloride Flush Syringe 10 Ml IV PRN PRN LINE FLUSH Tramadol HCl 50 mg 02/12/19 05:52 02/12/19 23:05 Ultram PO 50 mg Q6H PRN Administration Pain, Moderate (4-6) Trazodone HCl 50 mg 02/12/19 22:00 02/12/19 23:06 Desyrel PO 50 mg QHS WILL Administration
[2019-02-13 09:37] LABS: Basophils % (Auto) 0.8 % (0.0-1.8); Eosinophils # (Auto) 0.1 K/mm3 (0.0-0.4); Eosinophils % (Auto) 1.7 % (0.0-4.3); Hematocrit 38.3 % (30.3-42.9); Hemoglobin 13.2 gm/dl (10.1-14.3); Lymphocytes # (Auto) 2.5 K/mm3 (1.2-5.4); Mean Corpuscular HGB Conc 35 % (30-34); Mean Corpuscular Volume 89 fl (79-97); Monocytes # (Auto) 0.4 K/mm3 (0.0-0.8); Monocytes % (Auto) 6.7 % (0.0-7.3); Platelet Count 237 K/mm3 (140-440); Red Blood Count 4.32 M/mm3 (3.65-5.03); Red Cell Distribution Width 13.6 % (13.2-15.2)
[2019-02-13 10:03] LABS: BUN/Creatinine Ratio 7; Blood Urea Nitrogen 4 mg/dL (7-17); Calcium 8.2 mg/dL (8.4-10.2); Hemolysis Index 5
[2019-02-13] MEDS: NICOTINE 14 MG/24 HR PATCH TD SCH (11:22)
[2019-02-13] MEDS: HEPARIN 5,000 UNIT/1 ML VIAL SUB-Q SCH ×2 (11:22→22:15)
[2019-02-13] MEDS: PANTOPRAZOLE 20 MG TAB PO SCH ×2 (11:22→22:14)
[2019-02-13] MEDS: traMADol 50 MG TAB PO PRN (11:37)
[2019-02-13] MEDS ORDERED: MORPHINE 2 MG/1 ML INJ IV PRN (15:30)
--- NOTE | 2019-02-13 16:57 | Progress Note ---
Assessment and Plan Cultures: 02/12/2019 blood culture: no growth in 24 hours A/P: 43-year-old female with tobacco abuse, gastroesophageal reflux disease admitted with: 1) Left great toe cellulitis: ?underlying osteomyelitis of the tip of the distal phalanx, although no open wound, no h/o diabetes. Unusual presentation for osteomyelitis. Patient is a smoker, ?vascular insufficiency but vascular studies were unremarkable. No h/o gout, uric acid level came low. MRI showed cellulitis and osteomyelitis of the distal phalanx, no abscess. Rule out bacteremic seeding. 2) Tobacco abuse: smoking cessation was advised again today. Recs: if blood cultures are negative tomorrow, OK for discharge on PO Levofloxacin 750 mg daily x 6 weeks Patient will come to ID clinic on Saturday morning to start IV Dalvance infusions x 6 weeks (does not need PICC line) d/W Dr. Yohan Bird MD, FACP [facility] ([facility]) C: [phone] O: [phone] F: [phone] Subjective Date of service: 02/13/19 Interval history: No fever. Left toe still hurts. Complaining of headaches, ever since she started the nicotine patch. Got MRI and other studies done. Objective - Exam Narrative Exam: Physical Exam: Constitutional: Alert, cooperative. No acute distress Head, Ears, Nose: Normocephalic, atraumatic. External ears, nose normal Eyes: Conjunctivae/corneas clear. No icterus. No ptosis. Neck: Supple, no meningeal signs Oral: no thrush Cardiovascular: S1, S2 normal. Respiratory: Good air entry, clear to auscultation bilaterally GI: Soft, non-tender; bowel sounds normal. No peritoneal signs Musculoskeletal: No pedal edema, no cyanosis. Left great toe tip with swelling, redness and tenderness, no open wound. Left dorsalis pedis is palpable Skin: No rash or abscess Hem/Lymphatic: No palpable cervical or supraclavicular nodes. No lymphangitis Psych: Mood ok. Affect normal Neurological: Awake, alert, oriented. No gross abnormality - Constitutional Vitals: Vital Signs Temp Pulse Resp BP Pulse Ox 98.1 F 91 H 18 108/70 100 02/13/19 11:46 02/13/19 11:46 02/13/19 11:46 02/13/19 11:46 02/13/19 11:46 Temperature -Last 24 Hours Temperature 98.1 F Temperature 97.9 F Temperature 97.9 F Temperature 99.1 F - Labs CBC & Chem 7: 02/13/19 08:19 02/13/19 08:19 Labs: Abnormal lab results 02/13/19 02/13/19 Range/Units 08:19 08:19 MCHC 35 H (30-34) % Lymph % (Auto) 40.0 H (13.4-35.0) % BUN 4 L (7-17) mg/dL Creatinine 0.6 L (0.7-1.2) mg/dL Calcium 8.2 L (8.4-10.2) mg/dL
[2019-02-13] MEDS ORDERED: GABAPENTIN 300 MG CAP PO SCH (18:00)
[2019-02-13] MEDS: traZODone 50 MG TAB PO SCH (22:14)
[2019-02-14] MEDS: AMPICILLIN/SULBACTA 1.5GM/50ML 1.5 GM/50 ML BAG IV SCH ×3 (01:52→12:15)
[2019-02-14] MEDS: VANCOMYCIN/NS 1 GM/250 ML 1 GM/250 ML BAG IV SCH ×2 (02:47→10:00)
--- NOTE | 2019-02-14 08:52 | Discharge Summary ---
Providers - Providers Date of Admission: 02/12/19 03:42 Date of discharge: 02/14/19 Attending physician: CHARIS HERBERT 02/12/19 02:54 Consult to Physician [CONS] Routine Comment: Dr. Caruso spoke with Dr. Chiu @ 0230 Consulting Provider: ADELAIDA CHIU Physician Instructions: Reason For Exam: osteomylitis Primary care physician: FATOU NGO MD Hospitalization Reason for admission: Left great toe swelling /osteomyelitis Condition: Fair Pertinent studies: X-ray foot Lower extremity venous Doppler Ankle-brachial index Lower extremity MRI; distal great toe cellulitis with associated osteomyelitis involving the distal phalanx no abscess, Lower extremity arterial Doppler, no acute abnormality Hospital course: 43-year-old female who is an ongoing smoker with a shift GERD presents to [facility] with complaints of left foot swelling. She states that she has been experiencing swelling of the left foot for the past two weeks. According to pt, the swelling resolved and return approximately 4 days ago. Yesterday morning when she tried to put shoe on left foot, she was unable to do so. Her foot was so swollen that she was unable to put on her left shoe. It is aggravated with activity and touch. Pt denies injury or trauma to left foot. Patient's foot x-ray and MRI findings are consistent with osteomyelitis, placed on IV antibiotics evaluated by ID Cleared for discharge as patient is afebrile and cultures are negative, on oral Levaquin for 6 weeks, follow-up with ID and primary care physician for further evaluation management Discharge diagnosis; --Osteomyelitis (left foot great toe tip of the distal phalanx) Empiric IV antibiotics Unasyn and vancomycin, cultures negative ID evaluated and adjusted antibiotics --Ongoing tobacco abuse Smoking cessation,Nicotine patch as needed Disposition: DC-01 TO HOME OR SELFCARE Time spent for discharge: 32 min Core Measure Documentation - Palliative Care Palliative Care/ Comfort Measures: Not Applicable - Core Measures Any of the following diagnoses?: none Exam - Constitutional Vitals: Temp Pulse Resp BP Pulse Ox 98.1 F 66 18 109/72 100 02/14/19 05:41 02/13/19 23:48 02/14/19 05:41 02/14/19 05:41 02/13/19 23:48 General appearance: Present: no acute distress, well-nourished - EENT Eyes: Present: PERRL, EOM intact - Neck Neck: Present: supple, normal ROM Plan Activity: advance as tolerated, fall precautions Diet: regular Additional Instructions: ID recommend PO Levofloxacin 750 mg daily x 6 weeks . 2 weeks of Levaquin prescriptions given to the patient today,. prescription for additional 4 weeks of Levaquin will be given by ID upon follow-up visit on Saturday02/16/19. Patient will go to ID clinic on Saturday morning to start IV Dalvance. infusions x 6 weeks (does not need PICC line). Side effect profile of long-term Levaquin discussed with the patient,. verbalized understanding. Agreed with the treatment plan. Patient has multiple home medications, advised to check with primary care physician for medication review before resuming them. Follow up with: FATOU NGO MD [Primary Care Provider] - 3-5 Days ADELAIDA CHIU MD [Staff Physician] - 02/16/19 Prescriptions: Gabapentin 300 mg PO QPM #30 capsule Nicotine [Habitrol] 14 mg TD QDAY #30 patch levoFLOXacin [Levaquin] 750 mg PO QDAY #14 tablet traMADoL [Ultram 50 MG tab] 50 mg PO Q6HR PRN #10 tablet PRN Reason: Pain
[2019-02-14] MEDS: NICOTINE 14 MG/24 HR PATCH TD SCH (10:27)
[2019-02-14] MEDS: PANTOPRAZOLE 20 MG TAB PO SCH (10:28)
[2019-02-14] MEDS: HEPARIN 5,000 UNIT/1 ML VIAL SUB-Q SCH (10:28)
[2019-02-14 11:54] VITALS: BP 101/70
[2019-02-14] MEDS: traMADol 50 MG TAB PO PRN (15:02)
[2019-02-14] MEDS ORDERED: VANCOMYCIN/NS 1 GM/250 ML 1 GM/250 ML BAG IV SCH (18:00)
== END 2019-02-14 16:09 | disposition home or self-care (01) | DRG 541 ==
LOC: ED 19:46 → 3A 02-12 03:42
PROVIDERS: ADMIT Internal Medicine; ATTEND Internal Medicine
DX: M86.8X7 Other osteomyelitis, ankle and foot (principal); L03.032 Cellulitis of left toe; F17.200 Nicotine dependence, unspecified, uncomplicated; K21.9 Gastro-esophageal reflux disease without esophagitis; Z71.6 Tobacco abuse counseling; Z90.49 Acquired absence of other specified parts of digestive tract; Z90.710 Acquired absence of both cervix and uterus; Z79.899 Other long term (current) drug therapy; Z88.5 Allergy status to narcotic agent; Z88.1 Allergy status to other antibiotic agents
CPT/HCPCS: 36415; 80048; 80053; 80202; 80307; 82140; 84550; 85025; 85652; 86140; 87040; 93922; 93925; 96374; 99406; G0378; A9577; J0295; J1644; J2270; J2405; J3370; J7030; J7040

== ENCOUNTER 2019-02-19 17:55 | Emergency (ER) | payer MEDICARE ==
--- NOTE | 2019-02-19 19:26 | Event Note ---
ED Screening Note Date of service: 02/19/19 Time: 19:23 ED Screening Note: 43 y/o female comes in for left toe pain and drainage. Dx with osteomylitis Currently on IV abx and oral abx. Is followed by Dr. Pelon MORENO This initial assessment/diagnostic orders/clinical plan/treatment(s) is/are [place] bject to change based on patients health status, clinical progression and re- assessment by fellow clinical providers in the ED. Further treatment and workup at subsequent clinical providers discretion. Patient/guardian urged not to elope from the ED as their condition may be serious if not clinically assessed and managed. Initial orders include:
[2019-02-19 19:27] VITALS: BP 115/82
--- NOTE | 2019-02-19 20:13 | Emergency Department Report ---
- General Chief Complaint: Wound/Laceration Stated Complaint: L FOOT PAIN/SWOLLEN Time Seen by Provider: 02/19/19 19:20 Source: patient Mode of arrival: Ambulatory Limitations: No Limitations - History of Present Illness Initial Comments: pt is a 43 y/o w/f dx with ostemylitis on iv abx , tx'd by dr. Chiu, states dr. Chiu advised her to come in for increae pain swelling and drainage of left great toe , states pain is 5/10 entire foot is aching. pt is ambulatory , no riggers no n/v states noc fever, Onset/Timin -: week(s) Extremity Location: Left: Foot (left great toe ) Place: home Patient Tetanus UTD: Yes Associated Symptoms: pain, fever - Related Data Home Medications Medication Instructions Recorded Confirmed Last Taken Amitriptyline 20 mg PO HS 06/11/16 02/12/19 02/11/19 Gabapentin 300 mg PO HS 06/11/16 02/12/19 02/11/19 Meclizine 25 mg PO HS 06/11/16 02/12/19 02/11/19 Omeprazole 20 mg PO BID 06/11/16 02/12/19 02/11/19 Propranolol 40 mg PO BID 06/11/16 02/12/19 02/11/19 Sertraline 25 mg PO TID 06/11/16 02/12/19 06/10/16 busPIRone 5 mg PO BID 06/11/16 02/12/19 02/11/19 traZODone 50 mg PO QHS 02/12/19 02/12/19 02/10/19 Previous Rx's Medication Instructions Recorded Last Taken Type Gabapentin 300 mg PO QPM #30 capsule 02/14/19 Unknown Rx Nicotine [Habitrol] 14 mg TD QDAY #30 patch 02/14/19 Unknown Rx levoFLOXacin [Levaquin] 750 mg PO QDAY #14 tablet 02/14/19 Unknown Rx traMADoL [Ultram 50 MG tab] 50 mg PO Q6HR PRN #10 tablet 02/14/19 Unknown Rx Allergies Allergy/AdvReac Type Severity Reaction Status Date / Time acetaminophen [From Percocet] Allergy Itching Verified 02/19/19 18:05 oxycodone HCl [From Percocet] Allergy Itching Verified 02/19/19 18:05 ED Review of Systems ROS: Stated complaint: L FOOT PAIN/SWOLLEN Other details as noted in HPI Constitutional: denies: chills, fever Eyes: denies: eye pain, eye discharge, vision change ENT: denies: ear pain, throat pain Respiratory: denies: cough, shortness of breath, wheezing Cardiovascular: denies: chest pain, palpitations Endocrine: no symptoms reported Gastrointestinal: denies: abdominal pain, nausea, diarrhea Genitourinary: denies: urgency, dysuria, discharge Musculoskeletal: other (left great toe erythema drainage purulent ). 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 OSTEOMYELITIS LEFT GREAT TOE - Surgical History Hx Cholecystectomy: Yes Additional Surgical History: partial hysterectomy. bladder sling - Social History Smoking Status: Current Every Day Smoker Substance Use Type: None - Medications Home Medications: Home Medications Medication Instructions Recorded Confirmed Last Taken Type Amitriptyline 20 mg PO HS 06/11/16 02/12/19 02/11/19 History Gabapentin 300 mg PO HS 06/11/16 02/12/19 02/11/19 History Meclizine 25 mg PO HS 06/11/16 02/12/19 02/11/19 History Omeprazole 20 mg PO BID 06/11/16 02/12/19 02/11/19 History Propranolol 40 mg PO BID 06/11/16 02/12/19 02/11/19 History Sertraline 25 mg PO TID 06/11/16 02/12/19 06/10/16 History busPIRone 5 mg PO BID 06/11/16 02/12/19 02/11/19 History traZODone 50 mg PO QHS 02/12/19 02/12/19 02/10/19 History Gabapentin 300 mg PO QPM #30 capsule 02/14/19 Unknown Rx Nicotine [Habitrol] 14 mg TD QDAY #30 patch 02/14/19 Unknown Rx levoFLOXacin [Levaquin] 750 mg PO QDAY #14 tablet 02/14/19 Unknown Rx traMADoL [Ultram 50 MG tab] 50 mg PO Q6HR PRN #10 tablet 02/14/19 Unknown Rx ED Physical Exam - General Limitations: No Limitations General appearance: alert, in no apparent distress - Head Head exam: Present: atraumatic, normocephalic - Eye Eye exam: Present: normal appearance, PERRL, EOMI Pupils: Present: normal accommodation - ENT ENT exam: Present: mucous membranes moist - Neck Neck exam: Present: normal inspection, full ROM. Absent: tenderness - Respiratory Respiratory exam: Present: normal lung sounds bilaterally. Absent: respiratory distress, wheezes, stridor, chest wall tenderness - Cardiovascular Cardiovascular Exam: Present: regular rate, normal rhythm, normal heart sounds. Absent: systolic murmur, diastolic murmur, rubs, gallop - GI/Abdominal GI/Abdominal exam: Present: soft, normal bowel sounds. Absent: distended, tenderness, bruit, hernia - Rectal Rectal exam: Present: deferred - Expanded Lower Extremity Exam Left Foot/Toe exam: Present: full ROM, tenderness (left great toe ), swelling, erythema Neuro vascular tendon exam: Present: no vascular compromise. Absent: pulse deficit, motor deficit, sensory deficit, tendon deficit Gait: Positive: observed and normal - Back Exam Back exam: Present: normal inspection, full ROM. Absent: tenderness - Neurological Exam Neurological exam: Present: alert, oriented X3, CN II-XII intact, normal gait. Absent: motor sensory deficit - Psychiatric Psychiatric exam: Present: normal affect, normal mood - Skin Skin exam: Present: warm, dry, intact, normal color. Absent: rash ED Course Vital Signs 02/19/19 19:26 Temperature 98.6 F Pulse Rate 84 Respiratory 16 Rate Blood Pressure 115/82 [Left] O2 Sat by Pulse 96 Oximetry ED Medical Decision Making - Lab Data Result diagrams: 02/19/19 20:20 02/19/19 20:20 Labs 02/19/19 02/19/19 02/19/19 20:20 20:20 20:20 WBC 8.0 RBC 4.95 Hgb 15.1 H Hct 43.8 H MCV 88 MCH 31 MCHC 35 H RDW 13.6 Plt Count 241 Sodium 136 L Potassium 4.0 Chloride 97.9 L Carbon Dioxide 24 Anion Gap 18 BUN 10 Creatinine 0.7 Estimated GFR > 60 BUN/Creatinine Ratio 14 Glucose 93 Lactic Acid 0.90 Calcium 9.3 C-Reactive Protein 0.10 - Radiology Data Radiology results: report reviewed, image reviewed Ordering Physician: SHARAN HAN NP Date of Service: 02/19/19 Procedure(s): XR foot 3+V LT Accession Number(s): [id number] cc: SHARAN HAN NP Fluoro Time In Minutes: LEFT FOOT 4 VIEWS INDICATION / CLINICAL INFORMATION: osteomyelitis. COMPARISON: 02/11/2019 FINDINGS: Distal tuft of the great toe is again abnormal, with what appears to be lysis of the very distal cortex. However, there is also suggestion of fracture, old or at least subacute, involving the distal aspect of this phalanx. This could possibly represent a pathologic fracture. It is accompanied by soft tissue swelling of the great toe. No new abnormalities. Signer Name: Duldey Dhillon MD Signed: 02/19/2019 9:07 PM Workstation Name: [id number] Transcribed By: TM Dictated By: Dudley Dhillon MD Electronically Authenticated By: Dudley Dhillon MD Signed Date/Time: 02/19/192106 DD/ 02 TD/TT: - Medical Decision Making All labs are normal, x-ray no change from last week. Plan dressing great toe with associated follow-up with Dr. Denise as scheduled in 2-3 days return ED should symptoms worsen. Patient verbalized agreement and understanding of discharge plan patient DC'd home in stable condition at this time. Critical care attestation.: If time is entered above; I have spent that time in minutes in the direct care of this critically ill patient, excluding procedure time. ED Disposition Clinical Impression: Cellulitis of left toe Disposition: DC-01 TO HOME OR SELFCARE Is pt being admited?: No Does the pt Need Aspirin: No Condition: Stable Instructions: Cellulitis (ED), Osteomyelitis (ED), Acute Wound Care (ED) Additional Instructions: follow up with Dr Chiu as scheduled, continue levaquin and current pain medications. r Referrals: PRIMARY MD JOHN [Primary Care Provider] - 3-5 Days MICHELLE CHIU MD [Referring] - 3-5 Days Forms: Work/School Release Form(ED) Time of Disposition: 21:47
[2019-02-19 20:34] LABS: Hematocrit 43.8 % (30.3-42.9); Hemoglobin 15.1 gm/dl (10.1-14.3); Mean Corpuscular HGB Conc 35 % (30-34); Mean Corpuscular Volume 88 fl (79-97); Platelet Count 241 K/mm3 (140-440); Red Blood Count 4.95 M/mm3 (3.65-5.03); Red Cell Distribution Width 13.6 % (13.2-15.2)
[2019-02-19 20:57] LABS: BUN/Creatinine Ratio 14; Blood Urea Nitrogen 10 mg/dL (7-17); Calcium 9.3 mg/dL (8.4-10.2); Hemolysis Index 26
--- NOTE | 2019-02-19 21:11 | XRay Report ---
LEFT FOOT 4 VIEWS INDICATION / CLINICAL INFORMATION: osteomyelitis. COMPARISON: 02/11/2019 FINDINGS: Distal tuft of the great toe is again abnormal, with what appears to be lysis of the very distal jose j ex. However, there is also suggestion of fracture, old or at least subacute, involving the distal asp ect of this phalanx. This could possibly represent a pathologic fracture. It is accompanied by soft t issue swelling of the great toe. No new abnormalities. Signer Name: Dudley Dhillon MD Signed: 02/19/2019 9:07 PM Workstation Name: [id number]
== END 2019-02-19 22:14 | disposition home or self-care (01) ==
LOC: ED 17:55
DX: L03.032 Cellulitis of left toe (principal); K21.9 Gastro-esophageal reflux disease without esophagitis; F17.200 Nicotine dependence, unspecified, uncomplicated; Z79.899 Other long term (current) drug therapy; Z88.8 Allergy status to other drugs, medicaments and biological substances
CPT/HCPCS: 36415; 80048; 82140; 85027; 86140; 87040

== ENCOUNTER 2019-03-16 13:17 | Outpatient (CLI) | payer MEDICARE, OTHER ==
--- NOTE | 2019-03-16 14:57 | Vascular Lab Report ---
DUPLEX DOPPLER LOWER EXTREMITY VEINS, RIGHT INDICATION: RIGHT LEG SWELLING/CELLULITIS OF GREAT TOE LEFT. TECHNIQUE: Duplex doppler imaging was performed through the veins of the right lower extremity using venous comp ression and other maneuvers. COMPARISON: No relevant prior imaging study available. FINDINGS: Right Common femoral vein: Negative. Right Superficial femoral vein: Negative. Right Popliteal vein: Negative. Right Calf veins: Negative. Additional findings: None.. IMPRESSION: Negative for DVT. Signer Name: Isidro Jones MD Signed: 03/16/2019 2:53 PM Workstation Name: [id number]
== END 2019-03-16 13:18 | disposition home or self-care (01) ==
LOC: VAS 13:17
PROVIDERS: ATTEND Internal Medicine Infectious Disease
DX: L03.032 Cellulitis of left toe (principal); M79.89 Other specified soft tissue disorders

== ENCOUNTER 2019-05-28 09:24 | Day surgery (SDC) | payer MEDICARE ==
[~2019-05-28 09:24] MED LIST: SODIUM CHLORIDE 0.9% 1000 ML 1,000 ML IV SCH
[2019-05-28 09:59] VITALS: BP 118/83
--- NOTE | 2019-05-28 10:38 | Anesthesia Day of Surgery ---
Anesthesia Day of Surgery - Day of Surgery Patient Examined: Yes Patient H&P Reviewed: Yes Patient is NPO: Yes
--- NOTE | 2019-05-28 10:38 | Anesthesia Consultation ---
Anesthesia Consult and Med Hx Date of service: 05/28/19 - Airway Anesthetic Teeth Evaluation: Dentures, Partials ROM Head & Neck: Adequate Mental/Hyoid Distance: Adequate Mallampati Class: Class I Intubation Access Assessment: Good - Pulmonary Exam CTA: Yes - Pre-Operative Health Status ASA Pre-Surgery Classification: ASA2 Proposed Anesthetic Plan: MAC - Pulmonary Hx Smoking: Yes (current 1/2 PPD) Hx Asthma: No Hx Respiratory Symptoms: No COPD: No Hx Pneumonia: No (h/o pneumothorax) Hx Sleep Apnea: Yes - Cardiovascular System Hx Hypertension: No Hx Heart Attack/AMI: No Hx Valvular Heart Disease: No Hx Heart Murmur: No - Central Nervous System Hx Seizures: No (Arnold Chiari Malformation with headaches) Hx Psychiatric Problems: Yes (Anxiety/Depression) - Gastrointestinal Hx Gastroesophageal Reflux Disease: Yes (with dysphagia) - Endocrine Hx Renal Disease: No Hx Insulin Dependent Diabetes: No - Hematic Hx Anemia: No Hx Sickle Cell Disease: No - Other Systems Hx Alcohol Use: No Hx Substance Use: No Hx Cancer: No Hx Obesity: No - Additional Comments Anesthesia Medical History Comments: Patient denied previous anesthesia related complications.
[2019-05-28] MEDS ORDERED: LIDOCAINE (2%) 20 MG/1 ML VIAL 20 ML MDV INFILTRATI ONE (10:51)
[2019-05-28] MEDS ORDERED: propofoL 200 MG/20 ML VIAL IV ONE ×2 (10:51)
--- NOTE | 2019-05-28 11:37 | Operative Report ---
Operative Report Operative Report: Colonoscopy DATE: 05/28/2019 ATTENDING PHYSICIAN: Darci Ellis M.D. TYPE COPYIST: Darci Ellis M.D. INDICATIONS: Patient is a 43y.o. female who presents who presents with a history of change in bowel habits with diarrhea alternating with periods of constipation. A colonoscopy is done to evaluate patient so that treatment may be directed based on the findings. CONSENT: Informed consent was obtained after the patient was advised regarding the nature of this procedure, its indications, potential benefits as well as possible complications including but not limited to bleeding, perforation, adverse reaction to medications, infection as well as cardiopulmonary complications. An informed written and verbal consent was then obtained after due opportunity was provided for questions and answers. MONITORING: Patient monitored continuously with pulse oximetry, electrocardiographic recordings as well as automatic blood pressure recordings. Patient remained stable throughout the procedure with no untoward events. PREOPERATIVE ASSESSMENT: Patient was assessed immediately prior to this procedure for capacity to tolerate moderate sedation/monitored anesthesia care. [place] [employer] classification is 2. Mallampati class is 2. Hyomental distance is 3. INSTRUMENT: Olympus video colonoscope [id number]. MEDICATIONS: Propofol given intravenously in divided doses. For details, please refer to anesthesia records. DESCRIPTION OF PROCEDURE: Patient was placed in the left lateral decubitus position, after achieving sedation, a digital rectal examination was performed following which the colonoscope was introduced into the anal verge and advanced under direct visualization to the cecum which was identified by the ileocecal valve, the appendiceal orifice, the cecal strap as well as by direct transillumination in the right lower quadrant. Color texture mucosa and anatomy of the colon were carefully examined with the colonoscope. The colonoscope was then gently withdrawn with careful inspection of all mucosa surfaces. The patient tolerated the procedure well with no complications. After completion of the examination, patient was transferred to the recovery room. The prep written regimen was GoLYTELY and the preparation was fair. The [place] prep scale score was 6. The following findings were noted. FINDINGS: The entirety of the colon was normal. There were no gross mucosal abnormalities seen otherwise. On the retroflexed view at the anal verge patient had internal hemorrhoids. IMPRESSION: Normal colonoscopy Internal Hemorrhoids . PLAN: High fiber diet. Continue to manage patient symptomatically. Additional recommendations will be made in outpatient follow-up.
--- NOTE | 2019-05-28 11:38 | Discharge Summary ---
Short Stay Discharge Plan Activity: advance as tolerated Weight Bearing Status: Weight Bear as Tolerated Diet: regular Follow up with: FATOU NGO MD [Primary Care Provider] - 7 Days
--- NOTE | 2019-05-28 13:46 | Post Anesthesia Evaluation ---
- Post Anesthesia Evaluation Patient Participated: Yes Airway Patent: Yes Stable Respiratory Function: Yes Nausea/Vomiting: No Temp > 96.8F: Yes Pain Manageable: Yes Adequeate Hydration: Yes Anesthesia Complications: No
== END 2019-05-28 09:25 | disposition home or self-care (01) ==
LOC: GIO 09:24
PROVIDERS: ATTEND Internal Medicine Gastroenterology
DX: K59.00 Constipation, unspecified (principal); R19.7 Diarrhea, unspecified; K64.8 Other hemorrhoids; M86.9 Osteomyelitis, unspecified; G47.30 Sleep apnea, unspecified; K21.9 Gastro-esophageal reflux disease without esophagitis; F32.9 Major depressive disorder, single episode, unspecified; F41.9 Anxiety disorder, unspecified; Z98.890 Other specified postprocedural states; Z88.8 Allergy status to other drugs, medicaments and biological substances; Z79.899 Other long term (current) drug therapy; Z87.891 Personal history of nicotine dependence; Z90.49 Acquired absence of other specified parts of digestive tract; Z90.710 Acquired absence of both cervix and uterus
CPT/HCPCS: 45378; J2704; J7030

== ENCOUNTER 2020-01-07 20:39 | Emergency (ER) | payer MEDICARE ==
[2020-01-07 21:17] VITALS: BP 110/69
[2020-01-07 21:47] LABS: Basophils # (Auto) 0.1 K/mm3 (0.0-0.1); Eosinophils # (Auto) 0.1 K/mm3 (0.0-0.4); Eosinophils % (Auto) 1.6 % (0.0-4.3); Hematocrit 42.1 % (30.3-42.9); Hemoglobin 14.2 gm/dl (10.1-14.3); Lymphocytes # (Auto) 2.2 K/mm3 (1.2-5.4); Lymphocytes % (Auto) 38.7 % (13.4-35.0); Mean Corpuscular HGB Conc 34 % (30-34); Mean Corpuscular Volume 90 fl (79-97); Monocytes # (Auto) 0.4 K/mm3 (0.0-0.8); Monocytes % (Auto) 7.4 % (0.0-7.3); Platelet Count 208 K/mm3 (140-440); Red Blood Count 4.65 M/mm3 (3.65-5.03); Red Cell Distribution Width 13.9 % (13.2-15.2)
[2020-01-07 21:55] LABS: Bilirubin,Urine NEG (Negative); Blood,Urine MOD (Negative); Color,Urine Straw (Yellow); Protein,Urine <15 mg/dL mg/dL (Negative); Urobilinogen,Urine < 2.0 mg/dL (<2.0); WBC,Urine < 1.0 /HPF (0.0-6.0)
[2020-01-07 22:14] LABS: Alanine Aminotransferase 21 units/L (7-56); Albumin 4.2 g/dL (3.9-5); Blood Urea Nitrogen 6 mg/dL (7-17); Calcium 9.5 mg/dL (8.4-10.2); Hemolysis Index 20
[2020-01-07 22:17] LABS: BUN/Creatinine Ratio 9
[2020-01-07] MEDS ORDERED: ONDANSETRON 4 MG ODT TAB PO ONE (23:03)
[2020-01-07] MEDS ORDERED: KETOROLAC 30 MG/1 ML INJ IM ONE (23:03)
--- NOTE | 2020-01-07 23:17 | Emergency Department Report ---
ED Abdominal Pain HPI - General Chief Complaint: Abdominal Pain Stated Complaint: LEFT SIDE PAIN Time Seen by Provider: 01/07/20 22:27 Source: patient Mode of arrival: Ambulatory Limitations: No Limitations - History of Present Illness Initial Comments: Patient is a 44-year-old female who presents with left flank pain radiating to left suprapubic for the past week. Patient denies fevers or chills, patient does endorse dysuria frequency and urgency. Patient denies vaginal discharge or bleeding. Patient does have history of UTI. She advises 1 episode of nausea vomiting today. Patient is not status post partial abdominal hysterectomy MD Complaint: flank pain - Related Data Home Medications Medication Instructions Recorded Confirmed Last Taken Amitriptyline 20 mg PO HS 06/11/16 05/28/19 05/26/19 Meclizine 25 mg PO HS 06/11/16 05/28/19 02/11/19 Omeprazole 20 mg PO BID 06/11/16 05/28/19 02/11/19 Propranolol 40 mg PO BID 06/11/16 05/28/19 05/26/19 Sertraline 25 mg PO DAILY 06/11/16 05/28/19 05/26/19 busPIRone 5 mg PO BID 06/11/16 05/28/19 05/26/19 traZODone 50 mg PO QHS 02/12/19 05/28/19 05/26/19 Previous Rx's Medication Instructions Recorded Last Taken Type levoFLOXacin [Levaquin] 750 mg PO QDAY #14 tablet 02/14/19 Unknown Rx traMADoL [Ultram 50 MG tab] 50 mg PO Q6HR PRN #10 tablet 02/14/19 Unknown Rx traMADoL [Ultram] 50 mg PO Q6HR PRN #12 tablet 01/08/20 Unknown Rx Allergies Allergy/AdvReac Type Severity Reaction Status Date / Time acetaminophen [From Percocet] Allergy Itching Verified 02/19/19 18:05 oxycodone HCl [From Percocet] Allergy Itching Verified 02/19/19 18:05 ED Review of Systems ROS: Stated complaint: LEFT SIDE PAIN Other details as noted in HPI Constitutional: denies: chills, fever Eyes: denies: eye pain, eye discharge, vision change ENT: denies: ear pain, throat pain Respiratory: denies: cough, shortness of breath, wheezing Cardiovascular: denies: chest pain, palpitations Endocrine: no symptoms reported Gastrointestinal: abdominal pain, nausea, vomiting Genitourinary: frequency. denies: urgency, dysuria, hematuria, discharge Musculoskeletal: back pain (left flank ). denies: joint swelling, arthralgia Skin: denies: rash, lesions Neurological: denies: headache, weakness, paresthesias Psychiatric: denies: anxiety, depression Hematological/Lymphatic: denies: easy bleeding, easy bruising ED Past Medical Hx - Past Medical History Previous Medical History?: Yes Hx Hypertension: No Hx Heart Attack/AMI: No Hx Congestive Heart Failure: No Hx Diabetes: No Hx GERD: Yes Hx Renal Disease: No Hx Sickle Cell Disease: No Hx Seizures: (Arnold Chiari Malformation with headaches) Hx Asthma: No Hx COPD: No Additional medical history: rib fx and punctured lung. OSTEOMYELITIS LEFT GREAT TOE - Surgical History Past Surgical History?: Yes Hx Cholecystectomy: Yes Additional Surgical History: partial hysterectomy. bladder sling - Social History Smoking Status: Current Every Day Smoker Substance Use Type: None - Medications Home Medications: Home Medications Medication Instructions Recorded Confirmed Last Taken Type Amitriptyline 20 mg PO HS 06/11/16 05/28/19 05/26/19 History Meclizine 25 mg PO HS 06/11/16 05/28/19 02/11/19 History Omeprazole 20 mg PO BID 06/11/16 05/28/19 02/11/19 History Propranolol 40 mg PO BID 06/11/16 05/28/19 05/26/19 History Sertraline 25 mg PO DAILY 06/11/16 05/28/19 05/26/19 History busPIRone 5 mg PO BID 06/11/16 05/28/19 05/26/19 History traZODone 50 mg PO QHS 02/12/19 05/28/19 05/26/19 History levoFLOXacin [Levaquin] 750 mg PO QDAY #14 tablet 02/14/19 05/28/19 Unknown Rx traMADoL [Ultram 50 MG tab] 50 mg PO Q6HR PRN #10 tablet 02/14/19 05/28/19 Unknown Rx traMADoL [Ultram] 50 mg PO Q6HR PRN #12 tablet 01/08/20 Unknown Rx ED Physical Exam - General Limitations: No Limitations General appearance: alert, in no apparent distress - Head Head exam: Present: atraumatic, normocephalic - Eye Eye exam: Present: normal appearance - ENT ENT exam: Present: mucous membranes moist - Neck Neck exam: Present: normal inspection, full ROM. Absent: tenderness - Respiratory Respiratory exam: Present: normal lung sounds bilaterally. Absent: respiratory distress, wheezes, stridor - Cardiovascular Cardiovascular Exam: Present: regular rate, normal rhythm, normal heart sounds. Absent: systolic murmur, diastolic murmur, rubs, gallop - GI/Abdominal GI/Abdominal exam: Present: soft, tenderness (left flank), normal bowel sounds. Absent: distended, guarding, rebound, rigid, bruit, hernia - Rectal Rectal exam: Present: deferred - Extremities Exam Extremities exam: Present: normal inspection - Back Exam Back exam: Present: full ROM, CVA tenderness (L). Absent: CVA tenderness (R), vertebral tenderness - Neurological Exam Neurological exam: Present: alert, oriented X3 - Psychiatric Psychiatric exam: Present: normal affect, normal mood - Skin Skin exam: Present: warm, dry, intact, normal color. Absent: rash ED Course Vital Signs 01/07/20 21:07 Temperature 99.0 F Pulse Rate 85 Respiratory 20 Rate Blood Pressure 110/69 O2 Sat by Pulse 100 Oximetry ED Medical Decision Making - Lab Data Result diagrams: 01/07/20 21:25 01/07/20 21:25 Labs 01/07/20 01/07/20 01/07/20 21:25 21:25 21:30 WBC 5.8 RBC 4.65 Hgb 14.2 Hct 42.1 MCV 90 MCH 31 MCHC 34 RDW 13.9 Plt Count 208 Lymph % (Auto) 38.7 H Kimball % (Auto) 7.4 H Eos % (Auto) 1.6 Baso % (Auto) 1.0 Lymph # (Auto) 2.2 Kimball # (Auto) 0.4 Eos # (Auto) 0.1 Baso # (Auto) 0.1 Seg Neutrophils % 51.3 Seg Neutrophils # 3.0 Sodium 140 Potassium 3.5 L Chloride 102.2 Carbon Dioxide 28 Anion Gap 13 BUN 6 L Creatinine 0.7 Estimated GFR > 60 BUN/Creatinine Ratio 9 Glucose 94 Calcium 9.5 Total Bilirubin 0.20 AST 28 ALT 21 Alkaline Phosphatase 80 Total Protein 7.3 Albumin 4.2 Albumin/Globulin Ratio 1.4 Lipase 52 Urine Color Straw Urine Turbidity Clear Urine pH 6.0 Ur Specific [place] 1.005 Urine Protein <15 mg/dl Urine Glucose (UA) Neg Urine Ketones Neg Urine Blood Mod Urine Nitrite Neg Urine Bilirubin Neg Urine Urobilinogen < 2.0 Ur Leukocyte Esterase Neg Urine WBC (Auto) < 1.0 Urine RBC (Auto) 1.0 U Epithel Cells (Auto) 1.0 - Radiology Data Radiology results: report reviewed, image reviewed Findings Reporting MD: Sammy Díaz Dictation Time: January 07, 2020 22:48 Marketing Services Rep: Not available Industrial Services Worker Date: CT OF THE ABDOMEN AND PELVIS WITHOUT CONTRAST INDICATION / CLINICAL INFORMATION: Left flank pain. TECHNIQUE: All CT scans at this location are performed using CT dose reduction for ALARA by means of automated exposure control. COMPARISON: 12/29/15. FINDINGS: ABDOMEN: There is no evidence of renal calculus, hydronephrosis or perinephric soft tissue stranding. There is a small simple cystappearing lesion in the left mid kidney laterally. The gallbladder is surgically absent. The liver, spleen, bile ducts, pancreas, adrenal glands and bowel demonstrate no significant abnormality. There are atherosclerotic calcifications involving aorta without aneurysm. No adenopathy is seen. The lung bases are clear. PELVIS: The distal ureters and urinary bladder are normal. The uterus is not identified. There is no evidence of adnexal mass or free fluid. A normal appendix is present and there is no evidence of diverticulitis. There is a small fat-containing periumbilical hernia above the umbilicus without complication. No acute osseous abnormality is seen.. IMPRESSION: 1. No acute abnormality. No evidence of urinary tract calculus or hydronephrosis. 2. Small fat-containing periumbilical hernia superiorly without complication. Signer Name: Sammy Díaz MD Signed: 01/07/2020 10:48 PM Workstation Name: [id number] - Medical Decision Making CT abdomen and pelvis negative for renal stones, noted small perium pain, follow-up with general surgery bilical hernia fat-containing, no incarceration no obstruction. labs noted normal. Pain is improved plan DC to home with prescr iption for Ultram as needed to follow periumbilical hernia, follow-up primary care doctor as needed. Patient DC'd home in stable condition at this time Critical care attestation.: If time is entered above; I have spent that time in minutes in the direct care of this critically ill patient, excluding procedure time. ED Disposition Clinical Impression: Periumbilical hernia Disposition: - TO HOME OR SELFCARE Is pt being admited?: No Does the pt Need Aspirin: No Condition: Stable Instructions: Umbilical Hernia (ED) Prescriptions: traMADoL [Ultram] 50 mg PO Q6HR PRN #12 tablet PRN Reason: Pain Referrals: FATOU NGO MD [Primary Care Provider] - 3-5 Days DON SIMPSON DO [Staff Physician] - 3-5 Days Forms: Work/School Release Form(ED) Time of Disposition: 00:34
--- NOTE | 2020-01-07 23:52 | Cat Scan Report ---
CT OF THE ABDOMEN AND PELVIS WITHOUT CONTRAST INDICATION / CLINICAL INFORMATION: Left flank pain. TECHNIQUE: All CT scans at this location are performed using CT dose reduction for ALARA by means of automated e xposure control. COMPARISON: 12/29/15. FINDINGS: ABDOMEN: There is no evidence of renal calculus, hydronephrosis or perinephric soft tissue stranding. There is a small simple cyst-appearing lesion in the left mid kidney laterally. The gallbladder is s urgically absent. The liver, spleen, bile ducts, pancreas, adrenal glands and bowel demonstrate no si gnificant abnormality. There are atherosclerotic calcifications involving aorta without aneurysm. No adenopathy is seen. The lung bases are clear. PELVIS: The distal ureters and urinary bladder are normal. The uterus is not identified. There is no evidence of adnexal mass or free fluid. A normal appendix is present and there is no evidence of dive rticulitis. There is a small fat-containing periumbilical hernia above the umbilicus without complica tion. No acute osseous abnormality is seen.. IMPRESSION: 1. No acute abnormality. No evidence of urinary tract calculus or hydronephrosis. 2. Small fat-containing periumbilical hernia superiorly without complication. Signer Name: Sammy Díaz MD Signed: 01/07/2020 11:48 PM Workstation Name: [id number]
== END 2020-01-08 00:42 | disposition home or self-care (01) ==
LOC: ED 20:39
DX: K42.9 Umbilical hernia without obstruction or gangrene (principal); K21.9 Gastro-esophageal reflux disease without esophagitis; Z90.49 Acquired absence of other specified parts of digestive tract; Z98.890 Other specified postprocedural states; Z79.899 Other long term (current) drug therapy; Z88.8 Allergy status to other drugs, medicaments and biological substances
CPT/HCPCS: 36415; 74176; 80053; 81001; 83690; 85025; 96372; 99284; J1885; Q0162